=== PATIENT | male | born 1975 | race Caucasian/White ===

== ENCOUNTER → 2019-08-28 | Outpatient (CLI) | payer OTHER ==
[2019-08-28 21:00] LABS: ALANINE AMINOTRANSFERASE 29 U/L (0-55); ALBUMIN 4.8 GM/DL (3.2-4.5); ALKALINE PHOSPHATASE 92 U/L (40-136); BILIRUBIN,TOTAL 0.5 MG/DL (0.1-1.0); BUN/CREATININE RATIO 14; CALCIUM 9.7 MG/DL (8.5-10.1); CARBON DIOXIDE 27 MMOL/L (21-32); CHLORIDE 100 MMOL/L (98-107); CREATININE SERUM 0.95 MG/DL (0.60-1.30); GFR ESTIMATED > 60; GLUCOSE 98 MG/DL (70-105); SODIUM 140 MMOL/L (135-145); TOTAL PROTEIN 7.3 GM/DL (6.4-8.2)
[2019-08-28 21:01] LABS: BASOPHILS % (AUTO) 1 % (0-10); EOSINOPHILS % (AUTO) 2 % (0-10); HEMATOCRIT 43 % (40-54); HEMOGLOBIN 15.2 G/DL (13.3-17.7); LYMPHOCYTES % (AUTO) 31 % (12-44); MEAN CORPUSCULAR HEMOGLOBIN 32 PG (25-34); MEAN CORPUSCULAR HGB CONC 35 G/DL (32-36); MEAN CORPUSCULAR VOLUME 92 FL (80-99); MEAN PLATELET VOLUME 9.6 FL (7.4-10.4); MONOCYTES % (AUTO) 7 % (0-12); NEUTROPHILS % (AUTO) 59 % (42-75); PLATELET COUNT 398 10^3/uL (130-400); RED CELL DISTRIBUTION WIDTH 12.2 % (10.0-14.5); WHITE BLOOD COUNT 9.9 10^3/uL (4.3-11.0)
[2019-08-28 21:02] LABS: BASOPHILS # (AUTO) 0.1 10^3/uL (0.0-0.1); EOSINOPHILS # (AUTO) 0.2 10^3/uL (0.0-0.3); LYMPHOCYTES # (AUTO) 3.1 X 10^3 (1.0-4.0); MONOCYTES # (AUTO) 0.7 X 10^3 (0.0-1.0); NEUTROPHILS # (AUTO) 5.8 X 10^3 (1.8-7.8)
[2019-08-28 21:42] LABS: BAND NEUTROPHILS 2 %; BASOPHILS % (MANUAL) 1 %; EOSINOPHILS % (MANUAL) 2 %; LYMPHOCYTES % (MANUAL) 34 %; MONOCYTES % (MANUAL) 5 %; NEUTROPHILS % (MANUAL) 56 %; RBC MORPH NORMAL
[2019-08-28 22:32] LABS: FREE T4 (FREE THYROXINE) 0.94 NG/DL (0.70-1.48)
== END ==
LOC: LAB FS 18:15
PROVIDERS: ATTEND Nurse Practitioner
DX: I10 Essential (primary) hypertension (principal); R42 Dizziness and giddiness; Z82.49 Family history of ischemic heart disease and other diseases of the circulatory system
CPT/HCPCS: 36415; 80053; 80061; 84439; 84443; 85007; 85027

== ENCOUNTER 2023-02-23 15:56 | Emergency (ER) | payer BC, OTHER ==
[~2023-02-23] VITALS: Ht 175 cm; Wt 93.0 kg
--- NOTE | 2023-02-23 16:11 | ED GU-Male ---
General Chief Complaint: - Reproductive Stated Complaint: FREQUENT URINATION Source: patient Exam Limitations: no limitations History of Present Illness Date Seen by Provider: Feb 23, 2023 Time Seen by Provider: 16:04 Initial Comments 48-year-old male presents for increased urinary frequency for the last 10 days. He went to the [facility] walk-in clinic and was ultimately sent here because they thought he may be retaining urine. He tells me he is peeing every 20 to 30 minutes, small amounts. No dysuria. No blood. No penile or testicular symptoms. All other systems reviewed and negative except documented per HPI. Voice recognition software was used to help create this chart Allergies and Home Medications Patient Home Medication List Home Medication List Reviewed: Yes Ciprofloxacin HCl (Ciprofloxacin HCl) 500 Mg Tablet, 500 MG PO BID Prescribed by: KATE DOBBS MD on 02/23/23 162 Phenazopyridine HCl (Azo Urinary Pain Relief) 99.5 Mg Tablet, 99.5 MG PO TID Prescribed by: KATE DOBBS MD on 02/23/23 1625 Review of Systems Review of Systems Constitutional: see HPI Past Ufpikil-Cwxxuf-Uannks Hx Patient Social History Tobacco Use?: No Use of E-Cig and/or Vaping dev: No Substance use?: No Alcohol Use?: No Physical Exam Vital Signs Vital Signs - First Documented 02/23/23 15:58 Temp 36.0 Pulse 76 Resp 18 B/P (MAP) 160/110 (127) Pulse Ox 99 O2 Delivery Room Air Capillary Refill : Height, Weight, BMI Height: '" Weight: lbs. oz. kg; BMI Method: General Appearance: WD/WN, no apparent distress HEENT: normal ENT inspection, pharynx normal Neck: non-tender, supple Cardiovascular: regular rate, rhythm, no murmur Respiratory: chest non-tender, lungs clear, normal breath sounds, no respiratory distress, no accessory muscle use Gastrointestinal: normal bowel sounds, non tender, soft, no organomegaly Progress/Results/Core Measures Suspected Sepsis SIRS Temperature: Pulse: Respiratory Rate: Blood Pressure / Mean: Results/Orders Lab Results Laboratory Tests Test 02/23/23 15:59 Range/Units Urine Color YELLOW Urine Clarity SL CLOUDY Urine pH 6.0 5-9 Urine Specific [place] 1.025 H 1.016-1.022 Urine Protein NEGATIVE NEGATIVE Urine Glucose (UA) NEGATIVE NEGATIVE Urine Ketones NEGATIVE NEGATIVE Urine Nitrite NEGATIVE NEGATIVE Urine Bilirubin NEGATIVE NEGATIVE Urine Urobilinogen 0.2 < = 1.0 MG/DL Urine Leukocyte Esterase TRACE H NEGATIVE Urine RBC (Auto) 2+ H NEGATIVE Urine RBC 50-100 H /HPF Urine WBC 2-5 /HPF Urine Squamous Epithelial Cells RARE /HPF Urine Crystals NONE /LPF Urine Bacteria TRACE /HPF Urine Casts NONE /LPF Urine Mucus LARGE H /LPF Urine Culture Indicated NO My Orders Orders - KATE DOBBS DO Ua Culture If Indicated (02/23/23 15:57) Vital Signs/I&O 02/23/23 15:58 Temp 36.0 Pulse 76 Resp 18 B/P (MAP) 160/110 (127) Pulse Ox 99 O2 Delivery Room Air Capillary Refill : Departure Impression Primary Impression: Increased urinary frequency Additional Impression: Urinary tract infection Qualified Codes: N30.01 - Acute cystitis with hematuria Disposition: HOME, SELF-CARE Condition: Stable Departure-Patient Inst. Referrals: Yosvany AWAN MD, PANKAJ K MD (PCP/Family) Primary Care Physician Add. Discharge Instructions: Take the antibiotics as prescribed until they are gone. The Azo medication should help with the urinary frequency and burning. Increase your fluids at home and rest. If your symptoms persist I recommend you follow-up with Dr. Awan by calling to schedule an appointment. Return to the emergency department for any severe concerns All discharge instructions reviewed with patient and/or family. Voiced understanding. Scripts Ciprofloxacin HCl (Ciprofloxacin HCl) 500 Mg Tablet 500 MG PO BID for 7 Days, #14 TAB Prov: KATE DOBBS DO 02/23/23 Phenazopyridine HCl (Azo Urinary Pain Relief) 99.5 Mg Tablet 99.5 MG PO TID for Pain for 3 Days, #9 TAB Prov: KATE DOBBS DO 02/23/23 KATE DOBBS DO Feb 23, 2023 16:11
[2023-02-23 16:15] LABS: BILIRUBIN,URINE NEGATIVE (NEGATIVE); CLARITY,URINE SL CLOUDY; COLOR,URINE YELLOW; GLUCOSE, URINE (UA) NEGATIVE (NEGATIVE); KETONES,URINE NEGATIVE (NEGATIVE); LEUKOCYTE ESTERASE ,URINE TRACE (NEGATIVE); NITRITE,URINE NEGATIVE (NEGATIVE); PROTEIN,URINE NEGATIVE (NEGATIVE)
[2023-02-23 16:21] LABS: RBC,URINE 50-100 /HPF
[2023-02-23 16:22] LABS: BACTERIA,URINE TRACE /HPF; SQUAMOUS EPITHELIAL CELL,UR RARE /HPF
[2023-02-23] MEDS ORDERED: PHEN99.5 PO (16:25)
[2023-02-23] MEDS ORDERED: CIPR500T5 PO (16:28)
[2023-02-23 16:32] VITALS: BP 160/110
== END 2023-02-23 16:33 | disposition home or self-care (01) ==
LOC: EDUNIT# 15:56 → ER FS 15:57
DX: N39.0 Urinary tract infection, site not specified (principal)
CPT/HCPCS: 81000; 99282